=== PATIENT | male | born 1965 | race African-American/Black ===

== ENCOUNTER 2017-08-11 01:21 | Emergency (ER) | payer MEDICAID | END 2017-08-11 01:50 | LOC: ERS 01:21 | DX: F10.129 Alcohol abuse with intoxication, unspecified (principal); I10 Essential (primary) hypertension; F31.9 Bipolar disorder, unspecified; F17.210 Nicotine dependence, cigarettes, uncomplicated; Z79.899 Other long term (current) drug therapy | CPT/HCPCS: 99284 ==

== ENCOUNTER 2018-10-06 02:17 | Inpatient (IN) | payer MEDICAID, OTHER ==
[2018-10-06 03:14] LABS: #Eosinphils 0.1 thou/uL (0.0-0.7); #Lymphocytes 3.5 thou/uL (1.20-3.40); #Monocytes 0.9 thou/uL (0.11-0.59); #Neutrophils 8.7 thou/uL (1.40-6.50); %Basophils 0.4 % (0.0-1.0); %Eosinophils 0.5 % (0.0-10.0); %Lymphocytes 26.6 % (21.0-51.0); %Monocytes 6.5 % (0.0-10.0); %Neutrophils 65.9 % (42.0-75.0); Hemoglobin 12.3 g/dL (14.0-18.0); Mean Corpuscular HGB CONC 35.4 g/dL (32.0-36.0); Mean Corpuscular Hemoglobin 31.7 pg (27.0-31.0); Mean Corpuscular Volume 89.7 fL (78.0-98.0); Mean Platelet Volume 8.8 fL (7.4-10.4); Platelet Count 402 thou/uL (130-400); RBC Distribution Width 16.2 % (11.5-14.5); Red Blood Cell (RBC) Count 3.87 mill/uL (4.70-6.10); White Blood Cell (WBC) Count 13.2 thou/uL (4.8-10.8)
[2018-10-06 03:19] LABS: ALT (SGPT) 20 U/L (8-55); AST (SGOT) 22 U/L (5-34); Albumin 4.7 g/dL (3.5-5.0); Alkaline Phosphatase 46 U/L (40-150); Anion Gap 18 mmol/L (10-20); BUN (Urea Nitrogen) 10 mg/dL (8.4-25.7); Bilirubin, Total 1.5 mg/dL (0.2-1.2); CK (CPK) 271 U/L (30-200); Calc. Creatinine Clearance 0 mL/min (70-130); Calcium 10.3 mg/dL (7.8-10.44); Carbon Dioxide 20 mmol/L (22-29); Chloride 105 mmol/L (98-107); Estimated GFR-MDRD Greater than 90; Globulin 3.8 g/dL (2.4-3.5); Glucose 94 mg/dL (70-105); Potassium 4.1 mmol/L (3.5-5.1); Protein, Total 8.5 g/dL (6.0-8.3); Sodium 139 mmol/L (136-145)
[2018-10-06 03:47] LABS: Prothrombin Time 13.7 SEC (12.0-14.7)
[2018-10-06 03:48] LABS: PTT 30.8 SEC (22.9-36.1)
--- NOTE | 2018-10-06 04:26 | PDOC.FPRHP ---
- History of Present Illness Chief Complaint: Left sided weakness History of Present Illness: Mr Soares is a 53yo male with pmh of sickle cell anemia who presented to ED by EMS for left sided weakness, facial droop and slurred speech that started at 0100. He has never had this happen before. Reports drinking a couple beers with friends when after he walked to the car he slumped over to his left side, was not able to move his left arm and his voice was slurred to the point his friend was not able to make out what he was saying. EMS was called and transport time was reportedly 50min from the location he was at. During this he developed a facial droop and his vision became blurry. Reports tingling in left leg and it "feels heavy." In the ED he received tpa. At time of interview he reported resolution of slurred speech and blurry vision. He does have hx of sickle cell anemia, has never been on hydroxyurea. His rhuematologist is in [place]. Last crisis 6 months ago. Currently smokes 1ppd. Ran out of blood pressure medication a few weeks ago. PCP: [facility] ED Course: tPA CT head/CT head and neck: no acute findings - Allergies/Adverse Reactions Allergies Allergy/AdvReac Type Severity Reaction Status Date / Time No Known Allergies Allergy Unverified 10/06/18 05:59 - Home Medications Medication Instructions Recorded Confirmed Type RX: Folic Acid 1 mg PO DAILY 10/06/18 10/06/18 History - History PMHx: Sickle cell anemia PSHx: None FHx: Mother- DM HTN Social: Reports hx of cocaine use. Drinks 2-3 beers daily. Smokes 1ppd for last 20 years - Review of Systems General: denies: fever/chills, weight/appetite/sleep changes, fatigue Eyes: reports: vision changes (blurry vision) ENT: denies: nasal congestion, rhinorrhea Respiratory: denies: cough, congestion, shortness of breath Cardiovascular: denies: chest pain, palpitation, edema Gastrointestinal: reports: GI bleeding (hemorrhoids). denies: nausea, vomiting , diarrhea, constipation, abdominal pain Genitourinary: denies: dysuria, other (hematuria) Skin: denies: rashes, lesions Neurological: reports: numbness, weakness - Vital signs BP: 105/53 HR: 63 RR: 16 Tmax: 98.7 Pox: 98% on RA Wt: 73.4kg - Physical Exam Constitutional: NAD, awake, alert and oriented, well developed HEENT: normocephalic and atraumatic, PERRLA, grossly normal hearing, MMM, oropharynx clear Neck: supple, trachea midline, no bruits Heart: RRR, no murmurs/rubs/gallops Lungs: CTAB, no respiratory distress, good air movement, no wheezing Abdomen: soft, non-tender, bowel sounds present Musculoskeletal: normal structure, normal tone Neurological: other (CN 11 abnormal- unable to shrug left shoulder. CN 5: left lip droop Unable to raise left arm off bed. 5/5 right sided and left lower extremity strength.) FMR H&P: Results - Labs Result Diagrams: 10/06/18 02:51 10/06/18 02:51 Lab results: WBC 13.2 thou/uL (4.8-10.8) H 10/06/18 02:51 Hgb 12.3 g/dL (14.0-18.0) L 10/06/18 02:51 Hct 34.7 % (42.0-52.0) L 10/06/18 02:51 MCV 89.7 fL (78.0-98.0) 10/06/18 02:51 Plt Count 402 thou/uL (130-400) H 10/06/18 02:51 Neutrophils % 65.9 % (42.0-75.0) 10/06/18 02:51 Sodium 139 mmol/L (136-145) 10/06/18 02:51 Potassium 4.1 mmol/L (3.5-5.1) 10/06/18 02:51 Chloride 105 mmol/L (98-107) 10/06/18 02:51 Carbon Dioxide 20 mmol/L (22-29) L 10/06/18 02:51 BUN 10 mg/dL (8.4-25.7) 10/06/18 02:51 Creatinine 0.86 mg/dL (0.7-1.3) 10/06/18 02:51 Glucose 94 mg/dL (70-105) 10/06/18 02:51 Calcium 10.3 mg/dL (7.8-10.44) 10/06/18 02:51 Total Bilirubin 1.5 mg/dL (0.2-1.2) H 10/06/18 02:51 AST 22 U/L (5-34) 10/06/18 02:51 ALT 20 U/L (8-55) 10/06/18 02:51 Alkaline Phosphatase 46 U/L (40-150) 10/06/18 02:51 Creatine Kinase 271 U/L (30-200) H 10/06/18 02:51 Serum Total Protein 8.5 g/dL (6.0-8.3) H 10/06/18 02:51 Albumin 4.7 g/dL (3.5-5.0) 10/06/18 02:51 - Radiology Interpretation CT scan - head Status: pending FMR H&P: A/P - Problem List (1) Acute CVA (cerebrovascular accident) Current Visit: Yes Status: Acute Code(s): I63.9 - CEREBRAL INFARCTION, UNSPECIFIED (2) Sickle cell anemia Current Visit: Yes Status: Chronic Code(s): D57.1 - SICKLE-CELL DISEASE WITHOUT CRISIS (3) Tobacco abuse Current Visit: Yes Status: Chronic Code(s): Z72.0 - TOBACCO USE (4) Cocaine abuse Current Visit: Yes Status: Chronic Code(s): F14.10 - COCAINE ABUSE, UNCOMPLICATED - Plan Mr Soares is a 53yo male with pmh of sickle cell anemia admitted for acute CVA Acute CVA - CT/CTA head and neck: No acute findings - s/p tpa in ED - PRNs for BP >180/105 - Neurochecks q4h PRN - PT/OT, stroke team and neuro consulted - Echo & MRI ordered - No blood draws for 24hrs - FLP ordered after 24hr window - Started daily ASA and Atorvastatin - Encouraged cessation of tobacco abuse - Admit to stroke Sickle Cell - Currently pain free - Continue home meds PRN - Hgb 12.3 Tobacco Abuse - Encouraged cessation - Nicotine patch PRN Cocaine Abuse - Reported hx of abuse but no current use - UDS positive for cocaine Code Status: FULL DVT ppx: Lovenox 24hr post tpa PCP: [facility] FMR H&P: Upper Level - Pertinent history Derrell Soares is a 53 year old male with a history of sickle cell disease who presents to the ED with several hour history of sudden onset left leg/left arm weakness and left sided facial droop. Stat Non-con CT negative for hemorrhage. Pt given tPA in ED @ 354 pm - Pertinent findings BP: 105/43; vitals otherwise wnl General:Alert and oriented x3; in no distress Heart: regular rate and rhythm, no murmurs, rubs, or gallops Lungs: clear to auscultation bilaterally Neuro: mild left sided facial droop. Dense left upper extremity paralysis; mild LLE paresis Noncontrast CT head: negative - Plan Date/Time: 10/06/18 0425 I, Natalie Graham, have evaluated this patient and agree with findings/plan as outlined by copywriting intern resident. Pertinent changes/additions are listed here. Likely Acute Ischemic CVA - in the setting of a patient with sickle cell disease - ASA daily; - s/p tPA; post-tPA protocol - neuro consult in AM - MRI in AM; Echo; telemetry monitoring for arrhyhmias -will consult stroke team; rehab consult. Sickle cell disesae, with possible crisis - Hgb >10 - will check retic count - Pain control. IV fluids. Addendum - Attending - Attending Attestation Date/Time: 10/06/18 0600 I personally evaluated the patient and discussed the management with Dr. Cooper /Gladys I agree with the History, Examination, Assessment and Plan documented above with any addition or exceptions noted below. 55yo male with sickle cell anemia c/o 0100 this AM with diplopia TELLO and slurred speech and left sided facial drop and paralysis left upper and lower extremity patient brought in Per EMS with NIHSS 6. Patient evaluated for thrombolytic therapy and was cleared. At time my exam post tPA speech improved and weakness to LLE improved and left arm still limited movement but improved tactile sensation. PMHX Sickle cell last crisis 6 month ago ,HTN off RX, Bipolar depression, polysubstance abuse cocaine, ETOH and tobacco Current BP 130/70 P 80 RR 16 afebrile HEENT mild left facial paralysis speech clear neck supple Lung CTA Heart NSR Abdomen soft Neuro alert Ox3 left sided weakness arm greater leg decreased sensation distal LUE Ischemic CVA s/p Activase will be monitored in CCU ,initiate statin, swallow assessment echocardiogram Neurology consult this AM and scheduled MRI brain
[2018-10-06 04:43] LABS: Bilirubin Negative (Negative); Blood, Urine Trace (Negative); Clarity CLEAR (Clear); Glucose, Urine (Dipstick) Negative (Negative); Leukocyte Negative (Negative); Nitrite Negative (Negative); Protein, Urine (Dipstick) 30 mg/dL (Neg-Trace); Specific Gravity, Urine 1.026 (1.002-1.036); Urobilinogen 0.2 mg/dL (0.2-1.0)
[2018-10-06 04:46] LABS: Bacteria/HPF None Seen HPF (None Seen); Hyaline Casts/LPF 0-3 HYALINE CAST LPF (0-3 Hyaline); Pathc Cast-AUWi Flag 0.54 (0-2.49); RBC/HPF None Seen HPF (0-3); Squamous Epithelial None Seen HPF (0-3); WBC/HPF None Seen HPF (0-3)
[2018-10-06 04:57] LABS: Amphetamine Not Detected (NotDetected); Barbiturates Screen Not Detected (NotDetected); Benzodiazepine Screen Not Detected (NotDetected); Cocaine Metabolite Screen Detected (NotDetected); Medtox Control Line Valid? VALID (VALID); Medtox Reader # READER 1; Methadone Not Detected (NotDetected); Methamphetamine Not Detected (NotDetected); Opiate Screen Not Detected (NotDetected); Oxycodone Screen Not Detected (NotDetected); Phencyclidine (PCP) Not Detected (NotDetected); THC/Cannabinoid Screen Not Detected (NotDetected); Tricyclic Screen Not Detected (NotDetected)
[2018-10-06] MEDS ORDERED: Ondansetron PF 4 MG/2 ML Vial IVP PRN (05:59)
[2018-10-06] MEDS ORDERED: Ondansetron ODT 4 MG TAB SL PRN (05:59)
[2018-10-06] MEDS ORDERED: Acetaminophen 325 MG TAB PO PRN (05:59)
[2018-10-06] MEDS ORDERED: HYDROcodone/Acetaminophen 5/325 mg Tablet PO PRN (06:01)
[2018-10-06] MEDS ORDERED: Labetalol HCl 100 MG/20 ML VIAL SLOW IVP PRN (06:01)
[2018-10-06 06:03] VITALS: BMI 26.6
[2018-10-06] MEDS: HYDROcodone/Acetaminophen 5/325 mg Tablet PO PRN (07:24)
[2018-10-06] MEDS: Communication Order-Pharmacy FS SCH (07:29)
[2018-10-06] MEDS: Nicotine 21 MG PATCH TD SCH (07:29)
[2018-10-06] MEDS: Folic Acid 1 MG TAB PO SCH (07:29)
--- NOTE | 2018-10-06 08:09 | CT ---
CT HEAD NONCONTRAST: Date: 10/06/18 INDICATION: Stroke, left upper extremity weakness, left facial droop. Right-sided headache. No prior imaging for comparison. FINDINGS: There is normal size of ventricular system, without evidence of intracranial hemorrhage or mass effec t. Subtle hypodensities of the cerebral white matter may be related to gliosis or microvascular ische destin disease. Mild mucosal thickening within the paranasal sinuses is present. There is decreased pneu matization of the mastoid air cells. IMPRESSION: No acute intracranial abnormality or mass effect. Notification of findings placed at 0225 hours on 10/06/18. CODE CR. POS: MICHELLE
--- NOTE | 2018-10-06 08:12 | CT ---
CTA HEAD WITH CONTRAST WITH 3D VOLUME RENDERING CTA NECK WITH CONTRAST WITH 3D VOLUME RENDERING: Date: 10/06/18 CLINICAL HISTORY: Acute stroke, left upper extremity weakness with left facial droop and right-sided headache. FINDINGS: There are no prior imaging exams available for comparison purposes. There is no evidence of a major arterial occlusion or high grade stenosis of the head or neck. The im aged aortic arch and origins of great vessels are patent. Bilateral, visualized subclavian arteries a re patent, with limitation of left subclavian artery due to adjacent venous contrast. Vertebrobasilar system is patent. [place] of [place] reveals no significant abnormalities. Bilateral common carotid an d cervical internal carotid arteries are patent, as visualized. IMPRESSION: No high grade stenosis or occlusion involving the major arterial system of the head and neck. Notification of findings placed at the time of dictation, 0303 hours, 10/06/18. CODE CR. POS: MICHELLE
--- NOTE | 2018-10-06 08:44 | RAD ---
CHEST 1 VIEW: Date: 10/06/18 INDICATION: Stroke alert. COMPARISON: None. IMPRESSION: No acute cardiopulmonary abnormality. No consolidation, pleural effusion, or pneumothorax is evident. Heart size is accentuated by exam technique. POS: BH
--- NOTE | 2018-10-06 11:35 | CON ---
DATE OF CONSULTATION: 10-06-18 TELEMEDICINE CONSULT WITH VLAD ALBA. CHIEF COMPLAINT: Acute stroke. HISTORY OF PRESENT ILLNESS: The patient is a 53-year-old man with known sickle cell disease. His last sickle crisis was about 6 months ago. He presented to the emergency room via EMS with left-sided face, arm and leg weakness starting at 1: 00 a.m. and he was given IV tPA per the resident, that called me. The patient reports since the tPA, his left leg weakness improved, but his left arm is still weak. The patient has some numbness and tingling in the left arm. He also felt he had double vision. PREVIOUS MEDICAL HISTORY: Positive for sickle cell disease. He is seeing a physician in [place], [place]. He has hypertension, but no diabetes. FAMILY HISTORY: Both parents have sickle cell trait. His sister and daughter also have sickle cell trait. Son is healthy. PREVIOUS SURGICAL HISTORY: The patient has not had any surgeries so far. MEDICATION HISTORY: He used to be on aspirin. He ran out of it a month ago. He was supposed to be on aspirin. SOCIAL HISTORY: He is a smoker, smokes one pack a day for 25 years. History of alcohol use, occasional. He lives with his daughter. He does mow grass for living. REVIEW OF SYSTEMS: HEMATOLOGICAL: Positive for bleeding in his teeth and stool and he has sickle cell disease. NEUROLOGICAL: Positive for weakness in the left side of the body, left face, arm and leg. CARDIOVASCULAR: Negative for chest pain and heart palpitations. DERMATOLOGIC: Negative for skin rash. GASTROINTESTINAL: Positive for blood in stools. PSYCHIATRIC: Negative for any psychiatric issues. His acute stroke care history was obtained through the ER. He presented to the ER within timeframe for tPA and Activase was given at 3:55 a.m. this morning. CURRENT MEDICATIONS,: He is on statin, labetalol. LABORATORY DATA: His lab workup, white count 13.2, hemoglobin 12.3, hematocrit 34.7, platelets are 402. Chemistry, sodium 139, potassium 4.1, chloride 105, carbon dioxide 20, BUN 10, creatinine 0.86. Urine is positive for trace blood and protein. Urine tox is positive for cocaine. PT 13.7, INR 1.0, APTT 30.8. CT angiogram of the head and neck was also completed and I reviewed the reports. There is no high-grade stenosis or occlusion involving major arterial system of the head and neck. PHYSICAL EXAMINATION: VITAL SIGNS: His blood pressure was 127/70 and pulse is 70. Temperature, he was afebrile. Oxygen saturations 98%. GENERAL APPEARANCE: Well-built, well-nourished gentleman, who was able to give medical history. Appears comfortable. CHEST: Clear vesicular breathing. CARDIOVASCULAR: S1, S2 heard. No murmurs. ABDOMEN: Soft and nontender. NEUROLOGICAL EXAMINATION: Higher intellectual functions normal. Normal orientation to time, place, and person. Appropriate conversation. Cranial nerves 2 through 12 normal. Extraocular movements. Pupils are reactive 2 mm bilaterally. Sensory exam normal bilaterally. He has facial droop on the left side, mostly in the upper motor neuron pattern. Normal hearing to finger rub bilaterally. Normal elevation of palate. Tongue midline. Motor exam, he was unable to move his left upper extremity. Strength was 0/5 in the left upper extremity. Tone was normal. Strength was 5/5 on the right side in upper and lower extremities and left lower limb strength was 3/5 for proximal muscles distally 5/5. Deep tendon reflexes were absent. Muscle groups tested are iliopsoas, hamstrings, quadriceps, ankle dorsiflexion, plantar flexion, deltoid, biceps, triceps, wrist extension, flexion, finger extension and flexion bilaterally. Sensory, decreased touch and normal sensation bilaterally. Cerebellar, normal [id number] on the right side. Left was difficult to examine in the upper extremity. Left lower limb, coordination was normal. IMPRESSION: The patient is a 53-year-old man with multiple risk factors for stroke and sickle cell disease. His testing so far is positive for cocaine in his urine and CT angio was negative. He received IV tPA within the timeframe and window for his ischemic stroke in the emergency room. He had some improvement of his motor deficits, particularly left lower extremity. His examination shows left facial weakness and left arm weakness of 0/5 and left lower extremity weakness of proximal muscles were 3/5. Clinical history and diagnosis is most consistent with acute CVA. Possibilities include small-vessel ischemia due to hypertension and there is also an element of vasospasm, possibly due to cocaine. TREATMENT RECOMMENDATIONS: Please continue to follow stroke protocol for IV tPA. I will request MRI of the brain. Agree with aspirin and statin per protocol. I will follow up again tomorrow. Job ID: [id number] MTDFabio
[2018-10-06] MEDS: Sodium Chloride 0.45% 1,000 ML IV SCH ×2 (12:59→17:02)
--- NOTE | 2018-10-06 14:06 | CON ---
DATE OF CONSULTATION: 10/06/2018 SERVICE: Pulmonary Medicine. HISTORY OF PRESENT ILLNESS: The patient is a 53-year-old male with past medical history significant for sickle cell disease. He was in his usual state of health when he had an abrupt onset of left arm neurologic weakness. He presented to the emergency department and was given tPA at 3 o'clock this morning. He has not had any significant change in neurologic function. He is recovering currently in the ICU. He has no signs of bleeding currently. He denies any current fevers, chills, cough, sputum production, nausea, or vomiting. He is not having any chest pain or shortness of breath. Otherwise, he is in his usual state of health. PAST MEDICAL HISTORY: 1. Sickle cell disease. 2. History of stroke. PAST SURGICAL HISTORY: None. FAMILY HISTORY: Noncontributory. SOCIAL HISTORY: He has a history of cocaine use. He drinks 2 to 3 beers on a daily basis. He has a [id number] history of smoking and continues to smoke. He has no exposure to chemicals, dust, asbestos, or tuberculosis. ALLERGIES: NO KNOWN DRUG ALLERGIES. MEDICATIONS: List of the patient's inpatient medications was reviewed. No specific updates were made at this time. REVIEW OF SYSTEMS: General; head, ears, eyes, nose, and throat; cardiovascular; respiratory; GI; ; musculoskeletal; neurologic; and skin are negative except as mentioned in the HPI. PHYSICAL EXAMINATION: VITAL SIGNS: Afebrile, pulse 88, blood pressure 92/68, respirations 18, and saturation 97% on room air. GENERAL: The patient is awake and alert, in no apparent distress. LUNGS: Reveal excellent air entry. I do not appreciate wheezing or crackles. HEART: Normal rate, regular. ABDOMEN: Soft, nontender, and nondistended. Bowel sounds are positive. MUSCULOSKELETAL: No cyanosis or clubbing. There is no pitting in bilateral lower extremities. NEUROLOGIC: He has left-sided facial droop and a dense hemiplegia on the left upper extremity. He has good strength in bilateral lower extremities. He has good sensation in the left upper extremity. LABORATORY DATA: WBC 13.2, hemoglobin 12.3, and platelets 402,000. INR 1.0. Basic metabolic profile and liver function studies are otherwise unremarkable except for a total bilirubin that is elevated at 1.5. Troponin is negative x1. Urinalysis is negative except for a minimal proteinuria. Cocaine is positive on the urine drug screen. IMAGING DATA: 1. Chest x-ray demonstrates no acute cardiopulmonary abnormality. 2. CTA of the [place] demonstrates no high-grade stenosis or occlusion involving the major arterial systems of the head and neck. 3. CT of the brain demonstrates no acute intracranial abnormality or mass effect. ASSESSMENT: 1. Acute cerebrovascular accident. 2. Sickle cell disease without evident crisis. 3. Polysubstance drug abuse. DISCUSSION AND PLAN: The patient will remain in the ICU for 24 hours. At that period of time he has an elapse, he can be transitioned to the Stroke Unit. Pulmonary/Critical Care will continue to follow along for the time being. I think that IV hydration is indicated given his history of sickle crisis, but I do not think this is related to his underlying disease. He will need to follow up with his girl friday once he gets out of the hospital. 70 minutes have been devoted to this patient in various activities. I personally reviewed all imaging studies and laboratory data noted within this document. For fifty percent of this time, I was interacting with the patient at the bedside or coordinating care with the care team. For the remainder of the time I was immediately available to the patient in the hospital unit. Job ID: [id number] MTDD
[2018-10-06] MEDS ORDERED: ISOVUE-370 76%-LOCM 1 ML ONE (15:36)
[2018-10-06] MEDS: Atorvastatin Calcium 40 MG TAB PO SCH (21:13)
[2018-10-06] MEDS: Acetaminophen 325 MG TAB PO PRN (22:01)
[2018-10-07 04:57] LABS: Cardiac Risk 4.3 (Less than 4.5)
--- NOTE | 2018-10-07 05:33 | PDOC.FM ---
- Subjective Subjective: Patient reports no returned strength in his left arm. Otherwise, reports he is eating, drinking, voiding and stooling well. No headache or chest pain this AM. Left leg still feels heavy. - Objective Vital Signs & Weight: Vital Signs (12 hours) Pulse Ox 10/06/18 19:22 97 10/06/18 19:07 99 Weight Weight 72.6 kg Most Recent Monitor Data Heart Rate from ECG 77 NIBP 113/59 NIBP BP-Mean 77 Respiration from ECG 18 SpO2 96 I&O: 10/05/18 10/06/18 10/07/18 06:59 06:59 06:59 Intake Total 1719 Output Total 1770 Balance -51 Result Diagrams: 10/06/18 02:51 10/06/18 02:51 Phys Exam - Physical Examination Constitutional: NAD HEENT: PERRLA, moist MMs Respiratory: no wheezing, clear to auscultation bilateral Cardiovascular: RRR, no significant murmur Gastrointestinal: soft, non-tender Musculoskeletal: no edema, pulses present No movement LUE. RUE 5/5, LLE and RLE 5/5. L facial droop, similar to yest Psychiatric: normal affect Deviation from normal: calm affect Skin: no rash, normal turgor Dx/Plan (1) Acute CVA (cerebrovascular accident) Code(s): I63.9 - CEREBRAL INFARCTION, UNSPECIFIED Status: Acute (2) Cocaine abuse Code(s): F14.10 - COCAINE ABUSE, UNCOMPLICATED Status: Acute (3) Sickle cell anemia Code(s): D57.1 - SICKLE-CELL DISEASE WITHOUT CRISIS Status: Chronic (4) Tobacco abuse Code(s): Z72.0 - TOBACCO USE Status: Chronic - Plan Plan: Mr Soares is a 53yo male with pmh of sickle cell anemia admitted for acute CVA Acute CVA - LUE weakness and left facial droop - CT/CTA head and neck: No acute findings - s/p tpa in ED - PRNs for BP >180/105 - Neurochecks q4h PRN - PT/OT, stroke team and neuro consulted - Echo - EF 55-60%, Grade 1/3 diastolic dysfunction, Dilated RV and normal RV systolic function. Mildly enlarged right atrium size. Mild mitral and tricuspid regurgitation. - MRI -read pending - Started daily ASA and Atorvastatin - Encouraged cessation of tobacco and cocaine abuse - Transition out of ICU today - CM consulted. Pt will need placement at inpatient rehab Sickle Cell - Continue home meds PRN - Hgb 12.3 Cocaine Abuse - UDS positive for cocaine - Pt reports he last used 4 hrs before symptom onset - Encouraged cessation Tobacco Abuse - Encouraged cessation - Nicotine patch PRN Code Status: FULL DVT ppx: Lovenox PCP: [facility] Dispo: Patient will need placement at inpatient rehab at discharge. Addendum - Attending - Attending Attestation Date/Time: 10/07/18 [id number] I personally evaluated the patient and discussed the management with Dr. Roldan I agree with the History, Examination, Assessment and Plan documented above with any addition or exceptions noted below. s/p activase for ischemic CVA BP controlled on statin and ASA. Echocardiogram and Brain MRI pending result transfer to stroke unit today. Start OT/PT routine post CVA protocol Patient with hx sickle cell last pain crisis 6 months Polysubstance abuse recent cocaine use encourage cessation as well as tobacco ETOH cessation hypertension controlled
[2018-10-07] MEDS: Communication Order-Pharmacy FS SCH (08:33)
[2018-10-07] MEDS: Sodium Chloride 0.45% 1,000 ML IV SCH (08:33)
[2018-10-07] MEDS: Folic Acid 1 MG TAB PO SCH (08:58)
[2018-10-07] MEDS: Nicotine 21 MG PATCH TD SCH (08:58)
[2018-10-07] MEDS: Enoxaparin Sodium 40 MG/0.4 ML SYRINGE SC SCH (08:58)
[2018-10-07] MEDS: Aspirin 81 mg Enteric Coated Tablet PO SCH (08:58)
[2018-10-07] MEDS ORDERED: Aspirin 325 mg Enteric Coated Tablet PO SCH (09:00)
--- NOTE | 2018-10-07 10:14 | PRG ---
DATE OF SERVICE: 10/07/2018 SERVICE: Pulmonary Medicine. INTERVAL HISTORY: The patient is doing really well from respiratory standpoint. Breathing comfortably. He is clear to swallow. Denies any chest pain, fevers, or chills. He still has a dense plegia of that left arm. PHYSICAL EXAMINATION: VITAL SIGNS: Afebrile, pulse 92, blood pressure 113/80, respirations 19, and saturation 97% on room air. GENERAL: The patient is awake and alert, in no apparent distress. LUNGS: Decent air entry. There is no prolonged expiratory phase or wheezing. HEART: Normal rate. Regular. ABDOMEN: Soft, nontender, and nondistended. Bowel sounds are positive. MUSCULOSKELETAL: No cyanosis or clubbing. No pitting in the bilateral lower extremities. NEUROLOGIC: Grossly nonfocal. LABORATORY DATA: WBC 13.2, hemoglobin 12.3, and platelets 402,000. Basic metabolic profile and liver function studies are otherwise unremarkable except for a total bilirubin of 1.5. Urine drug screen is positive for cocaine. IMAGING STUDIES: Echocardiogram demonstrates normal ejection fraction with 1/3 diastolic dysfunction, dilated RV with normal RV systolic function. Right atrium is minimally enlarged. ASSESSMENT: 1. Acute cerebrovascular accident. 2. Sickle cell disease. 3. Polysubstance drug abuse with cocaine and other things. DISCUSSION AND PLAN: The patient is doing fine from respiratory standpoint. He is stable for transition out of the ICU to the stroke unit. Will interrupt his IV fluids. MRI will be pursued today. When he lands on the floor, he will have not additional requirements for pulmonary or critical care opinion, and I will sign off. Job ID: [id number] [facility]
--- NOTE | 2018-10-07 11:23 | PRG ---
DATE OF SERVICE: 10/07/2018 TELEMEDICINE VISIT WITH VLAD ALBA CHIEF COMPLAINT: CVA. INTERVAL HISTORY: The patient reports there has been no interval change in his strength. He is still weak in his left arm and leg. His MRI is currently pending and stroke workup is pending. CURRENT WORKUP RESULTS: Echocardiogram was completed. Ejection fraction is at 55% to 60% and he has grade 1/3 diastolic dysfunction and he has mildly enlarged right atrium, mild mitral and tricuspid regurgitation, and his MRI is pending. LABORATORY REPORTS: Today, white count 13.2, hemoglobin 12.3, hematocrit 34.7, platelets 402. Chemistry; sodium 139, potassium 4.1, chloride 105, BUN 10, creatinine 0.86, glucose 94, triglycerides 150, cholesterol 207, LDL 129, HDL 48. Heart disease risk ratio is 4.3, and his MRI as noted has been pending. PHYSICAL EXAMINATION: VITAL SIGNS: Blood pressure is 108/78, heart rate is 93. The patient is afebrile. Temperature is 97.9. GENERAL APPEARANCE: Well-built, well-nourished man, who appears comfortable. CHEST: Clear vesicular breathing. CARDIOVASCULAR: S1, S2 heard. No murmurs. NEUROLOGICAL: Higher intellectual functions. Normal orientation to time, place , and person. Cranial nerves; left facial asymmetry with droop and normal extraocular movements. Motor examination; strength on the right side 5/5. Left upper extremity strength 0/5. Left lower extremity strength proximal 4/5 and distal 5/5. IMPRESSION: The patient with acute stroke, likely in the right internal capsule. He received IV tPA. He had cocaine in his system as well. CT angio is negative. He is waiting for his MRI. Stroke risk factors include drug use, hypertension, and sickle cell anemia. RECOMMENDATIONS: I will check on the MRI. If needed, please call Neurology again tomorrow. Please arrange for the patient to have rehab as an inpatient, so he can improve prior to discharge. Job ID: [id number] [facility]
--- NOTE | 2018-10-07 11:23 | MRI ---
[facility] Brain WO Con: 10/07/2018 6:01 AM CLINICAL HISTORY: Left-sided weakness for 3 days. TECHNIQUE: Multiplanar multisequence MR images were obtained of the brain without IV contrast COMPARISON: CTA of the head dated 10/06/[address] of the brain dated 10/07/1999 FINDINGS: Extra axial spaces: Normal in size and morphology for the patient's age. Hemorrhage: None. Ventricular system: Normal in size and morphology for the patient's age. Basal cisterns: Normal. Cerebral parenchyma: There are multifocal regions of restricted diffusion involving the cortex of rig ht frontal parietal region with associated T2 signal abnormality consistent multiple cortical based s ubacute infarcts. The distribution of the orbits are most suspicious for embolic disease. There is mi ld scattered chronic small vessel white matter ischemic change. Midline shift: None. Cerebellum: Normal. Brainstem: Normal. OTHER: Calvarium: Normal. Vascular system: Normal. Visualized Paranasal sinuses: Clear. Visualized Orbits: Normal. Visualized upper cervical spine: Normal. Sella and skull base: Normal. IMPRESSION: Multiple subacute cortically based infarcts involving the right MCA distribution of the right frontal and parietal cortex. The distribution of the subacute infarcts raises suspicion for embolic disease. Recommend consideration for possible echocardiogram. Mild chronic small vessel white matter ischemic change.
[2018-10-07] MEDS: HYDROcodone/Acetaminophen 5/325 mg Tablet PO PRN ×3 (12:23→20:17)
[2018-10-07] MEDS: Atorvastatin Calcium 40 MG TAB PO SCH (20:19)
--- NOTE | 2018-10-08 06:22 | PDOC.FM ---
- Subjective Subjective: pt enjoying breakfast in bed, reports no improvement to weakness. denies headache. - Objective Vital Signs & Weight: Vital Signs (12 hours) Temp Pulse Resp BP Pulse Ox 10/08/18 03:48 97.7 F 75 16 113/55 L 95 10/07/18 23:51 98.2 F 63 16 128/56 L 96 10/07/18 20:16 99 10/07/18 19:48 97.2 F L 80 16 106/58 L 99 Weight Weight 72.575 kg Most Recent Monitor Data Heart Rate from ECG 93 NIBP 108/78 NIBP BP-Mean 88 Respiration from ECG 26 SpO2 97 I&O: 10/06/18 10/07/18 10/08/18 06:59 06:59 06:59 Intake Total 2650 930 Output Total 1770 900 Balance 880 30 Result Diagrams: 10/06/18 02:51 10/06/18 02:51 Phys Exam - Physical Examination Constitutional: NAD HEENT: moist MMs Neck: full ROM Respiratory: clear to auscultation bilateral Cardiovascular: RRR, no significant murmur Gastrointestinal: no distention Musculoskeletal: pulses present Neurological: normal sensation weakness at baseline Lymphatic: no nodes Psychiatric: normal affect Skin: no rash Dx/Plan (1) Acute CVA (cerebrovascular accident) Code(s): I63.9 - CEREBRAL INFARCTION, UNSPECIFIED Status: Acute (2) Cocaine abuse Code(s): F14.10 - COCAINE ABUSE, UNCOMPLICATED Status: Acute (3) Sickle cell anemia Code(s): D57.1 - SICKLE-CELL DISEASE WITHOUT CRISIS Status: Chronic (4) Tobacco abuse Code(s): Z72.0 - TOBACCO USE Status: Chronic - Plan Plan: Acute CVA - LUE weakness and left facial droop, CT/CTA head and neck: No acute findings - s/p tpa in ED, PRNs for BP >180/105, Neurochecks q4h PRN - PT/OT, stroke team and neuro consulted, appreciate recs - Echo - EF 55-60%, Grade 1/3 diastolic dysfunction, Dilated RV and normal RV systolic function. Mildly enlarged right atrium size. Mild mitral and tricuspid regurgitation. - MRI -read pending - daily ASA and Atorvastatin - CM consulted. Pt will need placement at inpatient rehab Sickle Cell - Continue home meds PRN - Hgb 12.3 Cocaine Abuse - UDS positive for cocaine - Pt reports he last used 4 hrs before symptom onset - Encouraged cessation Tobacco Abuse - Encouraged cessation - Nicotine patch PRN Code Status: FULL DVT ppx: Lovenox PCP: OOT Dispo: pending placement
[2018-10-08] MEDS: Folic Acid 1 MG TAB PO SCH (08:26)
[2018-10-08] MEDS: Aspirin 81 mg Enteric Coated Tablet PO SCH (08:27)
[2018-10-08] MEDS: Enoxaparin Sodium 40 MG/0.4 ML SYRINGE SC SCH (08:27)
[2018-10-08] MEDS: HYDROcodone/Acetaminophen 5/325 mg Tablet PO PRN ×3 (08:27→22:19)
--- NOTE | 2018-10-08 12:01 | PRG ---
DATE OF SERVICE: 10/08/2018 SUBJECTIVE: Mr. Soares is still having some left-sided weakness. His CT angiography studies of the head and neck, impression, there was no high-grade stenosis or occlusion involving the major arterial system of the head and neck. On brain MRI, conclusion was he had multiple subacute cortically based infarcts involving the right MCA distribution of the right frontal and parietal cortex. The distribution of these infarcts raise the suspicion for embolic disease and the patient underwent an echocardiogram. The echocardiogram demonstrated a normal ejection fraction and grade 1/3 diastolic dysfunction. The right ventricle was dilated with normal systolic function. The right atrium was mildly enlarged. There was mild mitral and mild tricuspid regurgitation. The patient likely has thromboembolic disease from his sickle cell disease causing chronic pulmonary hypertension and the above-mentioned changes of the echocardiogram. In the event, he will be treated with aspirin and a statin for his stroke and encouraged to follow up with his sickle cell position. To his knowledge, he has never taken hydroxyurea and this was suggested for him to discuss with his mink slicer. Job ID: [id number]
[2018-10-08] MEDS: Atorvastatin Calcium 40 MG TAB PO SCH (20:58)
--- NOTE | 2018-10-09 06:36 | PDOC.FM ---
- Subjective Subjective: pt resting comfortably in bed, weakness at baseline. tolerating PO - Objective Vital Signs & Weight: Vital Signs (12 hours) Temp Pulse Resp BP Pulse Ox 10/09/18 03:55 97.9 F 60 16 111/59 L 94 L 10/08/18 23:49 98.1 F 57 L 16 117/55 L 95 10/08/18 19:27 98.6 F 58 L 16 118/59 L 98 Weight Weight 80.422 kg Most Recent Monitor Data Heart Rate from ECG 93 NIBP 108/78 NIBP BP-Mean 88 Respiration from ECG 26 SpO2 97 I&O: 10/07/18 10/08/18 10/09/18 06:59 06:59 06:59 Intake Total 2650 930 2500 Output Total 1770 900 350 Balance 353 98 3057 Result Diagrams: 10/06/18 02:51 10/06/18 02:51 Phys Exam - Physical Examination Constitutional: NAD HEENT: moist MMs Neck: full ROM Gastrointestinal: no distention Musculoskeletal: no edema Neurological: normal sensation Psychiatric: normal affect Skin: no rash Dx/Plan (1) Acute CVA (cerebrovascular accident) Code(s): I63.9 - CEREBRAL INFARCTION, UNSPECIFIED Status: Acute (2) Cocaine abuse Code(s): F14.10 - COCAINE ABUSE, UNCOMPLICATED Status: Acute (3) Sickle cell anemia Code(s): D57.1 - SICKLE-CELL DISEASE WITHOUT CRISIS Status: Chronic (4) Tobacco abuse Code(s): Z72.0 - TOBACCO USE Status: Chronic - Plan Plan: Acute CVA - LUE weakness and left facial droop, CT/CTA head and neck: No acute findings - s/p tpa in ED, PRNs for BP >180/105, Neurochecks q4h PRN - PT/OT, stroke team and neuro consulted, appreciate recs - Echo - EF 55-60%, Grade 1/3 diastolic dysfunction, Dilated RV and normal RV systolic function. Mildly enlarged right atrium size. Mild mitral and tricuspid regurgitation. - MRI -read pending - daily ASA and Atorvastatin - CM consulted. Pt will need placement at inpatient rehab Sickle Cell - Continue home meds PRN - Hgb 12.3 Cocaine Abuse - UDS positive for cocaine - Pt reports he last used 4 hrs before symptom onset - Encouraged cessation Tobacco Abuse - Encouraged cessation - Nicotine patch PRN Code Status: FULL DVT ppx: Lovenox PCP: WILLIAM Dispo: pending placement
[2018-10-09] MEDS: HYDROcodone/Acetaminophen 5/325 mg Tablet PO PRN ×2 (07:56→17:43)
[2018-10-09] MEDS: Aspirin 81 mg Enteric Coated Tablet PO SCH (07:57)
[2018-10-09] MEDS: Folic Acid 1 MG TAB PO SCH (07:57)
[2018-10-09] MEDS: Enoxaparin Sodium 40 MG/0.4 ML SYRINGE SC SCH (07:58)
--- NOTE | 2018-10-09 11:45 | PRG ---
DATE OF SERVICE: 10/09/2018 SUBJECTIVE: There has been no significant clinical change in Mr. Soares. He does state that he used cocaine about 4 hours before he had this TIA type episode. Certainly, this could have been a contributing factor in addition to his sickle cell disease. In the event, he is clinically stable and ready for discharge. We will continue him on medical management with aspirin and atorvastatin. We have encouraged him to follow up with his golf course ranger to consider a long-term use of hydroxyurea as this has already been discussed with him by his golf course ranger. Job ID: [id number]
[2018-10-09] MEDS: Atorvastatin Calcium 40 MG TAB PO SCH (21:07)
[2018-10-10] MEDS: HYDROcodone/Acetaminophen 5/325 mg Tablet PO PRN (03:23)
--- NOTE | 2018-10-10 06:26 | PDOC.FM ---
- Subjective Subjective: pt resting comfortably in bed, reports daughter will come pick him up today after she finishes work. denies new headache or weakness - Objective Vital Signs & Weight: Vital Signs (12 hours) Temp Pulse Resp BP Pulse Ox 10/10/18 03:25 97.4 F L 60 16 125/68 97 10/10/18 00:00 98.1 F 57 L 18 111/57 L 95 10/09/18 20:59 96 10/09/18 20:00 98.0 F 57 L 18 111/55 L 96 Weight Weight 78.744 kg Most Recent Monitor Data Heart Rate from ECG 93 NIBP 108/78 NIBP BP-Mean 88 Respiration from ECG 26 SpO2 97 I&O: 10/08/18 10/09/18 10/10/18 06:59 06:59 06:59 Intake Total 930 2500 960 Output Total 900 350 Balance 30 2150 960 Result Diagrams: 10/06/18 02:51 10/06/18 02:51 Phys Exam - Physical Examination Constitutional: NAD HEENT: moist MMs Neck: full ROM Gastrointestinal: no distention Musculoskeletal: no edema Neurological: normal sensation Lymphatic: no nodes Psychiatric: normal affect Skin: no rash Dx/Plan (1) Acute CVA (cerebrovascular accident) Code(s): I63.9 - CEREBRAL INFARCTION, UNSPECIFIED Status: Acute (2) Cocaine abuse Code(s): F14.10 - COCAINE ABUSE, UNCOMPLICATED Status: Acute (3) Sickle cell anemia Code(s): D57.1 - SICKLE-CELL DISEASE WITHOUT CRISIS Status: Chronic (4) Tobacco abuse Code(s): Z72.0 - TOBACCO USE Status: Chronic - Plan Plan: Acute CVA - LUE weakness and left facial droop, CT/CTA head and neck: No acute findings - s/p tpa in ED, PRNs for BP >180/105, Neurochecks q4h PRN - PT/OT, stroke team and neuro consulted, appreciate recs - Echo - EF 55-60%, Grade 1/3 diastolic dysfunction, Dilated RV and normal RV systolic function. Mildly enlarged right atrium size. Mild mitral and tricuspid regurgitation. - MRI -read pending - daily ASA and Atorvastatin - CM consulted. Pt will need placement at inpatient rehab Sickle Cell - Continue home meds PRN - Hgb 12.3 Cocaine Abuse - UDS positive for cocaine - Pt reports he last used 4 hrs before symptom onset - Encouraged cessation Tobacco Abuse - Encouraged cessation - Nicotine patch PRN Code Status: FULL DVT ppx: Lovenox PCP: WILLIAM Dispo: DC home with daughter today
[2018-10-10] MEDS: Aspirin 81 mg Enteric Coated Tablet PO SCH (08:31)
[2018-10-10] MEDS: Acetaminophen 325 MG TAB PO PRN (08:31)
[2018-10-10] MEDS: Folic Acid 1 MG TAB PO SCH (08:31)
[2018-10-10] MEDS: Enoxaparin Sodium 40 MG/0.4 ML SYRINGE SC SCH (08:32)
--- NOTE | 2018-10-10 11:12 | PRG ---
DATE OF SERVICE: 10/10/2018 Mr. Soares is sitting quietly in bed, in no distress. He will be discharged today to follow up with his human performance consultant in [place]. He is going to live with his daughter. Job ID: [id number]
[2018-10-10 11:43] VITALS: TEMP 97.7
[2018-10-10 13:24] VITALS: BP 130/64
--- NOTE | 2018-10-11 10:56 | DIS ---
DATE OF ADMISSION: 10/06/2018 DATE OF DISCHARGE: 10/10/2018 ADMITTING ATTENDING: Magen Newman MD DISCHARGE ATTENDING: Ilya Arenas MD RESIDENT: Jhonathan Dennison DO CONSULTS: 1. Neurology, Dr. Bernard Felton. 2. Pulmonology, Dr. Marquis Smith. PROCEDURES: None. IMAGING: Brain CT significant for no acute intracranial abnormality or mass effect. Brain CTA significant for no high-grade stenosis in the head and neck. Chest x-ray, no acute cardiopulmonary abnormality. Echocardiogram significant for left ventricular ejection fraction visually estimated at 55% to 60%, mildly enlarged right atrium. Brain MRI significant for multiple subacute cortically based infarcts involving the right MCA distribution of the right frontal and parietal cortex. The distribution of the subacute infarcts raises suspicion for embolic disease. Recommended a consideration for possible echocardiogram. DISCHARGE MEDICATIONS: 1. Folic acid 1 mg p.o. daily. 2. Aspirin 81 mg p.o. daily. 3. Atorvastatin 40 mg p.o. at bedtime. DISCONTINUED MEDICATIONS: None. PRIMARY DIAGNOSIS: Acute cerebrovascular accident. SECONDARY DIAGNOSES: 1. Sickle cell. 2. Cocaine abuse. 3. Tobacco abuse. HISTORY OF PRESENT ILLNESS/HOSPITAL COURSE: This is a 53-year-old male with past medical history significant for sickle cell disease, who presented to the emergency department for left-sided weakness, facial droop, and slurred speech. This started at around 0100 hours at night, he reports never having this before. He was within the tPA window and presented to the ER, and it was determined based on the symptoms that tPA was appropriate. He underwent the procedure and tolerated it well. tPA protocol initiated. After the completion, no resolution of symptoms was noted. The patient was allowed permissive hypertension. Vital signs remained stable. Neurology was consulted and agreed with medical management, reducing risk factors for future CVA. The patient continued to remain stable. Vital signs stable. No increasing or worsening weakness or slurred speech. However, no improvement to neurologic deficits. The patient did not have insurance and was not available to participate in inpatient rehab. Case Management worked with the patient and family, declined [facility] facility placement or placement in a senior care. Deemed stable for home with family support. DIET: Heart healthy, low-sodium. FOLLOWUP: Follow up with out of town PCP in 3 to 5 days. Job ID: [id number]
== END 2018-10-10 15:15 | disposition home or self-care (01) | DRG 62 ==
LOC: ERS 02:17 → CCU 04:20 → 2SE 10-07 10:56
PROVIDERS: ADMIT Family Medicine; ATTEND Family Medicine
DX: I63.511 Cerebral infarction due to unspecified occlusion or stenosis of right middle cerebral artery (principal); G81.94 Hemiplegia, unspecified affecting left nondominant side; R29.706 NIHSS score 6; R29.810 Facial weakness; R47.81 Slurred speech; I10 Essential (primary) hypertension; D57.1 Sickle-cell disease without crisis; F17.210 Nicotine dependence, cigarettes, uncomplicated; F14.10 Cocaine abuse, uncomplicated; E78.5 Hyperlipidemia, unspecified; F41.9 Anxiety disorder, unspecified; F31.9 Bipolar disorder, unspecified; Z79.899 Other long term (current) drug therapy
CPT/HCPCS: 36415; 36416; 70450; 70496; 70498; 70551; 71045; 80053; 80061; 80306; 81003; 81015; 82550; 84484; 85025; 93005; 93306; 96361; 96365; 96376; 99292; J1650; J2997; Q9966